=== PATIENT | male | born 1970 | race African-American/Black ===

== ENCOUNTER 2020-03-31 06:34 | Emergency (ER) | payer MEDICAID ==
[~2020-03-31] VITALS: Ht 188 cm; Wt 81.8 kg
[2020-03-31] MEDS ORDERED: INSLAN SQ (06:45)
[2020-03-31] MEDS ORDERED: INSU100V3 INJ (06:45)
[2020-03-31] MEDS ORDERED: NITROGLYCERIN 2% (1 GM=INCH) PACKET TP ONE (07:15)
[2020-03-31] MEDS ORDERED: ASPIRIN 81 MG CHEWABLE TABLET PO ONE (07:15)
[2020-03-31 07:33] LABS: BASOPHILS % (AUTO) 1.5 % (0.0-2.0); EOSINOPHILS % (AUTO) 9.6 % (1.0-6.0); HEMATOCRIT 35.8 % (41-53); HEMOGLOBIN 11.7 g/dL (13.5-17.5); LYMPHOCYTES # (AUTO) 1.4 K/uL (1.0-4.8); LYMPHOCYTES % (AUTO) 36.1 % (22.0-44.0); MEAN CORPUSCULAR HEMOGLOBIN 27.5 pg (26.0-34.0); MEAN CORPUSCULAR HGB CONC 32.6 G/dL (31.0-37.0); MEAN CORPUSCULAR VOLUME 84 fL (80-100); MONOCYTES # (AUTO) 0.4 K/uL (0.1-1.0); MONOCYTES % (AUTO) 11.3 % (2.0-9.0); NEUTROPHILS # (AUTO) 1.6 K/uL (1.8-7.7); NEUTROPHILS % (AUTO) 41.5 % (40.0-70.0); PLATELET COUNT (AUTO) 238 K/uL (150-450); RED BLOOD CELL COUNT(AUTO) 4.25 MIL/uL (4.50-5.90); RED CELL DISTRIBUTION WIDTH 13.9 % (11.5-14.5)
[2020-03-31 07:46] LABS: CREATININE 1.35 mg/dL (0.60-1.30); POTASSIUM 3.9 mmol/L (3.5-5.1)
[2020-03-31] MEDS ORDERED: INSULIN REGULAR, HUMAN 100 UNITS/ML IVP ONE (08:00)
[2020-03-31] MEDS ORDERED: SODIUM CHLORIDE 0.9% 1,000 ML IV ONE (08:00)
[2020-03-31 08:17] LABS: GLUCOSE,POINT OF CARE 417 MG/DL (70-110)
[2020-03-31 09:24] LABS: GLUCOSE,POINT OF CARE 233 MG/DL (70-110)
[2020-03-31 10:39] VITALS: BP 114/67
[2020-03-31 10:57] LABS: GLUCOSE,POINT OF CARE 155 MG/DL (70-110)
== END 2020-03-31 11:30 | disposition home or self-care (01) ==
LOC: EMS 06:34
DX: R07.89 Other chest pain (principal); E11.65 Type 2 diabetes mellitus with hyperglycemia; F12.90 Cannabis use, unspecified, uncomplicated; Z79.4 Long term (current) use of insulin
CPT/HCPCS: 36415; 71045; 80048; 82962; 84484; 85025; 93005; 96361; 96374; 99285; J1815; J7030; 82948